=== PATIENT | male | born 2005 | race Caucasian/White ===

== ENCOUNTER 2023-01-15 11:43 | Outpatient (REF) | payer OTHER, SELFPAY ==
[2023-01-15 14:44] LABS: Appearance Urine Clear; Color Urine Yellow; Glucose Urine UA Negative (Negative); Leukocyte Esterase Urine Negative (Negative); Nitrite Urine Negative (Negative); Urine Blood Negative (Negative); Urine Ketones 15 mg/dL (Negative); Urine Protein Negative (Neg-Trace)
[2023-01-15 15:05] LABS: Alanine Aminotransferase 12 U/L (0-40); Albumin Level 4.7 g/dL (3.5-5.0); Alkaline Phosphatase 48 U/L (39-117); Anion Gap 11 (12-20); Aspartate Amino Transferase 19 U/L (5-37); Bilirubin Total 0.7 mg/dL (0.0-1.0); Blood Urea Nitrogen 14 mg/dL (9-16); Calcium 9.8 mg/dL (8.4-10.2); Carbon Dioxide 29 mmol/L (22-29); Chloride 105 mmol/L (96-108); Cholesterol 136 mg/dL; Estimated Glomerular Filt Rate > 60; Glucose Fasting 88 mg/dL (60-99); HDL Cholesterol 46 mg/dL; LDL Cholesterol Calculated 81 mg/dl; Potassium 5.3 mmol/L (3.3-5.1); Sodium 140 mmol/L (135-145); Triglycerides 48 mg/dL
[2023-01-15 15:10] LABS: TSH reflex Free T4 0.94 uIU/mL (0.32-4.0)
[2023-01-16 07:58] LABS: Syphilis Screen Nonreactive (Nonreactive)
[2023-01-16 08:14] LABS: HBS Num1 0.18 mIU/mL (0-7.99); HBc Num1 0.17 S/CO (0.00-0.79); HBsAGNum1 0.39 S/CO (0.00-0.99); HIV AB/AG Nonreactive (Nonreactive); HIV Num 1 0.08 S/CO (0.00-0.99); Hepatitis B Core Antibody Nonreactive (Nonreactive); Hepatitis B Surface Antigen Negative (Negative); ~HepC Num1 0.15 S/CO (0.00-0.79); ~Hepatitis B Surface Antibody NONREACTIVE (Nonreactive); ~Hepatitis C Antibody Nonreactive (Nonreactive)
== END 2023-01-15 11:44 | disposition home or self-care (01) ==
LOC: HO.WFDLDS 11:43
PROVIDERS: Visit Provider Family Medicine
DX: Z00.00 Encounter for general adult medical examination without abnormal findings (principal); Z11.3 Encounter for screening for infections with a predominantly sexual mode of transmission; Z11.4 Encounter for screening for human immunodeficiency virus [HIV]
CPT/HCPCS: 36415; 80053; 80061; 81003; 84443; 86704; 86706; 86780; 86803; 87340; 87389

== ENCOUNTER 2023-01-22 12:35 | Outpatient (REF) | payer OTHER, SELFPAY ==
[2023-01-23 16:53] LABS: CT PCR NOT DETECTED (Not Detect.); NG PCR NOT DETECTED (Not Detect.)
== END 2023-01-22 12:36 | disposition home or self-care (01) ==
LOC: HO.LAB 12:35
PROVIDERS: Visit Provider Family Medicine
DX: Z11.3 Encounter for screening for infections with a predominantly sexual mode of transmission (principal); N50.819 Testicular pain, unspecified
CPT/HCPCS: 0353U

== ENCOUNTER 2023-03-16 15:56 | Outpatient (REF) | payer OTHER, SELFPAY ==
--- NOTE | ~2023-03-16 | US_ITS ---
EXAMINATION: US SCROTUM CLINICAL INFORMATION: Testicular pain, unspecified. COMPARISON: None available. TECHNIQUE: A sonogram of the scrotum was performed assessing chung-scale appearance and color Doppler flow. Spectral Doppler analysis of the arterial and venous flow were performed in the testes bilaterally. FINDINGS: RIGHT: Right testicle measures 4.6 x 2.4 x 3.3 cm, volume 19.1 mL. No focal testicular parenchymal lesions are visualized. Spectral Doppler analysis of the arterial and venous flow is normal in the right testis. Right epididymal head is rectal for a 2 mm epididymal head cyst. No right hydrocele or varicocele is seen. Right epididymal Doppler flow is normal. LEFT: Left testicle measures 4.6 x 2.5 x 3.2 cm, volume 19.2 mL. No focal testicular parenchymal lesions are visualized. Spectral Doppler analysis of the arterial and venous flow is normal in the left testis. Left epididymal head is normal in size. No left hydrocele is seen. Left epididymal Doppler flow is normal. Moderate left varicocele. US/US scrotum IMPRESSION: 1. Moderate left varicocele. 2. A 2 mm right epididymal head cyst.
== END 2023-03-16 15:57 | disposition home or self-care (01) ==
LOC: HO.US 15:56
PROVIDERS: PCP Family Medicine; Visit Provider Family Medicine
DX: N50.819 Testicular pain, unspecified (principal)
CPT/HCPCS: 76870

== ENCOUNTER 2023-07-13 07:59 | Outpatient (AMB) | payer OTHER, SELFPAY ==
--- NOTE | 2023-07-13 07:58 | A.OFFVIS_ITS ---
Intake Intake Visit Reasons: Varicocele/epididymal head cyst Intake Note: NEW Patient presents today to established treatment for Varicocele/Epidydimal Head Cyst: Meds- None Allergies to Antibiotic- Penicillin Blood Thinner- None Acetylene Burner Required: No Accompanied by: Self / Same As Patient Allergies Penicillins Allergy (Unknown, Verified 07/13/23 08:14) Unknown HPI HPI Comments History of Present Illness Details Benjie is a 18-year-old male who presents today to the office to establish as a new patient for an evaluation of varicocele/epididymal head cyst. 07/13/2023? He presents today for an evaluation of left varicocele and testicular pain. He has seen Jose Howe on 04/15/2023 for testicular pain. He was referred to the urology office during that time. He states he noticed the problem about 2 1/2 years ago. He states that when he has 'stress' the pain seems worse. Currently he is asymptomatic. I reviewed the scrotum US results from 03/16/2023 revealed moderate left varicocele, and a 2 mm right epididymal head cyst. He mentions having pain in the testicles. He states that his pain worsens due to emotional stress. Evaluation today?UA? leukocytes: negative; blood: negative. Examination: grade 1 to 2 varicocele on the left. I discussed that stress should not cause more pain in the testicle related to the varicocele, but strenous activity may make things more bothersome, also discussed that severe varicoceles may affect fertility. Plan: Follow up with Dr. Lou in 6 months to discuss varicocele repair at that time. [facility] Surgical History No pertinent past surgical history Family History Paternal Aunt Glaucoma Father No problems noted. Mother No problems noted. Social History Housing: House Patient Tobacco Use Status: Never used Tobacco e-Cigarette/Vaping Use: Never Used Second Hand Smoke Exposure: No service: No Current occupational status: employed Current occupational exposures/hazards: No Review of Systems Const All systems reviewed & are unremarkable except as noted in HPI and below Reports no additional complaints Eyes Reports no additional complaints ENT Reports no additional complaints Card Denies dyspnea Resp Denies cough and Denies dyspnea GI Reports no additional complaints Musc Reports no additional complaints Skin/Breast Denies rash and Denies unusual bruising Neuro Reports no additional complaints Psych Reports no additional complaints Endo Reports no additional complaints Farrukh/Lymph Reports no additional complaints Aller/Immun Reports no additional complaints Physical Exam Const General: healthy appearing, no acute distress and well developed Orientation/consciousness: patient oriented x3 HEENT Head: Yes normocephalic and Yes atraumatic Eyes Conjunctivae: conjunctivae normal Neck Neck: Yes normal visual inspection Chest Chest palpation & inspection: normal inspection of the chest Resp Effort & Inspection: normal respiratory effort Cardio Rate: regular rate GI Inspection: Yes normal to inspection Palpation (GI): Soft to palpation Other: grade I-II left varicocele, testes nontender Penis: normal penis Scrotum: scrotum normal Skin General skin exam: no rashes or lesions noted Neuro General: patient oriented x3 Extrem General: No pedal edema Psych Appearance: grossly normal Affect: normal affect Results AMB Urinalysis, Automated UA Leukoctes 0 Amrita/uL Last Edit by DARLENE Gotti on 07/13/23 08:24 UA Nitrite Negative Last Edit by DARLENE Gotti on 07/13/23 08:24 UA Urobilinogen 0.2 mg/dL Last Edit by DARLENE Gotti on 07/13/23 08:2 4 UA Protein 0 mg/dL Last Edit by DARLENE Gotti on 07/13/23 08:24 UA pH 7.0 Last Edit by DARLENE Gotti on 07/13/23 08:24 UA Blood 0 Nils/uL Last Edit by DARLENE Gotti on 07/13/23 08:24 UA Specific Conesus 1.005 Last Edit by DARLENE Gotti on 07/13/23 08: 24 UA Ketone Negative Last Edit by DARLENE Gotti on 07/13/23 08:24 UA Bilirubin 0 mg/dL Last Edit by DARLENE Gotti on 07/13/23 08:24 UA Glucose 0 mg/dL Last Edit by DARLENE Gotti on 07/13/23 08:24 Results Reviewed Results Reviewed: Laboratory Last Values Urine pH (Auto) 7.0 07/13/23 08:02 Specific Conesus (Auto) 1.005 07/13/23 08:02 Urine Protein (Auto) 0 mg/dL 07/13/23 08:02 Glucose (UA)(Auto) 0 mg/dL 07/13/23 08:02 Urine Ketones (Auto) Negative 07/13/23 08:02 Urine Blood (Auto) 0 Nils/uL 07/13/23 08:02 Urine Nitrite (Auto) Negative 07/13/23 08:02 Urine Bilirubin (Auto) 0 mg/dL 07/13/23 08:02 Urine Urobilinogen (Auto) 0.2 mg/dL 07/13/23 08:02 Leukocyte Esterase (Auto) 0 Amrita/uL 07/13/23 08:02 Date of Service: 03/16/23 EXAMINATION: US SCROTUM CLINICAL INFORMATION:? Testicular pain, unspecified. COMPARISON:? None available. FINDINGS: RIGHT: Right testicle measures 4.6 x 2.4 x 3.3 cm, volume 19.1 mL. No focal testicular parenchymal lesions are visualized. Spectral Doppler analysis of the arterial and venous flow is normal in the right testis. Right epididymal head is rectal for a 2 mm epididymal head cyst. No right hydrocele or varicocele is seen. Right epididymal Doppler flow is normal. LEFT: Left testicle measures 4.6 x 2.5 x 3.2 cm, volume 19.2 mL. No focal testicular parenchymal lesions are visualized. Spectral Doppler analysis of the arterial and venous flow is normal in the left testis.? Left epididymal head is normal in size. No left hydrocele is seen. Left epididymal Doppler flow is normal. Moderate left varicocele. IMPRESSION: 1.? Moderate left varicocele. 2.? A 2 mm right epididymal head cyst. Assessment & Plan Assessment & Plan (1) Testicular pain: Code(s): N50.819 - Testicular pain, unspecified (2) Left varicocele: Code(s): I86.1 - Scrotal varices Plan Follow up with Dr. Lou in 6 months to discuss varicocele repair at that time. Orders: Orders AMB Urinalysis Automated Today Z13.9 - Encounter for screening, unspecified Patient Instructions: The patient had an opportunity to ask questions regarding treatment plan. All questions were answered. Imaging, Laboratory studies and physical exam results were discussed and reviewed in detail. No major barriers to understanding were identified. The patient expressed understanding and agreement with the above treatment plan. The patient is aware they should contact our office by phone for worsening of their current condition or the appearance of new symptoms. Compliance is encouraged with any medications and followup testing that is ordered. It is a privilege to be allowed the opportunity to participate in the urologic care of your patient. If you have any questions or concerns regarding treatment for the above conditions please do not hesitate to contact me. The office telephone contact is [phone]. This note is constructed in part using voice recognition software. While every effort has been made to ensure accuracy network program manager errors may have been included. Yours sincerely, Tad Sifuentes MD Coding Level of Care Code New Pt Level 3 (67157) Diagnoses Testicular pain N50.819 Left varicocele I86.1
== END 2023-07-13 08:50 | disposition home or self-care (01) ==
PROVIDERS: PCP Family Medicine; Visit Provider Urology
DX: N50.819 Testicular pain, unspecified (principal); I86.1 Scrotal varices; Z13.9 Encounter for screening, unspecified
CPT/HCPCS: 99203

== ENCOUNTER → 2023-07-13 07:59 | Outpatient (BNVA) | payer OTHER, SELFPAY | PROVIDERS: PCP Family Medicine; Visit Provider Urology | DX: N50.812 Left testicular pain (principal); I86.1 Scrotal varices | CPT/HCPCS: 81003; 99202 ==

== ENCOUNTER 2024-07-01 11:38 | Outpatient (AMB) | payer OTHER, SELFPAY ==
--- NOTE | 2024-07-01 11:41 | A.OFFPC_ITS ---
Vital Signs 07/01/24 11:48 07/01/24 11:53 07/01/24 12:22 Height 5 ft 10 in Weight 158 lb 4 oz BMI 22.7 BP 158/68 H 148/70 H 126/70 Blood Pressure Location Rt brachial Rt brachial Lt brachial Position Sitting Sitting Sitting Respiration 16 Pulse 77 Pulse Source Pulse Oximeter Temp 98.3 F Temp Source Oral Pulse Oximetry (%) 98 Oxygen Delivery Method Room Air Intake Visit Reasons: Eczema in hands Intake Note: patient here c/o eczema on hands Vest Front Presser Required: No Allergies No Known Allergies Allergy (Verified 07/01/24 11:57) Medication List - Last Reconciled 07/01/24 by Sarah Esquivel CNP No Known Home Meds Tobacco use date assessed: 07/01/24 HPI HPI Comments History of Present Illness Details 19-year-old male presents with complaint s of eczema to his hands. He notes that the rash is on and off, about every 2 months; current flare-up started 2 months ago He is a patient of and was last seen on 04/15/2023 He notes that his father and PGF has history of HTN PFSH Surgical History No pertinent past surgical history Family History Paternal Aunt Glaucoma Father No problems noted. Mother No problems noted. Social History Housing: House Patient Tobacco Use Status: Never used Tobacco e-Cigarette/Vaping Use: Never Used Second Hand Smoke Exposure: No service: No Current occupational status: employed Current occupational exposures/hazards: No Questionnaire Thrive Questionnaire Date Thrive assessed: 01/22/23 DONOVAN-7 AMB Questionnaire DONOVAN-7 Date DONOVAN - 7 assessed: 01/22/23 Source: Developed by Drs. Everett Varela, Emmie Goodman, Timmy Mclean and colleagues, with an educational francesco from [employer]. Review of Systems Const Details: Const Denies chills, Denies fatigue, Denies fever(s), Denies headache(s) and Denies weakness ENT Denies dizziness and Denies headache(s) Card Denies chest pain, Denies lightheadedness, Denies dyspnea and Denies other (Palpitations) Resp Denies cough, Denies dyspnea, Denies wheezing and Denies other ( shortness of breath) GI Denies abdominal pain, Denies melena, Denies hematochezia, Denies change in bowel habits, Denies dyspepsia and Denies nausea Denies hematuria and Denies dysuria Musc Denies abnormal gait, Denies myalgias, Denies arthralgias, Denies numbness and Denies tingling Skin/Breast Reports as per HPI Neuro Denies abnormal gait, Denies dizziness, Denies headache(s), Denies memory loss, Denies numbness, Denies Sensory deficit (Neuro), Denies tingling and Denies weakness Psych Denies anxiety, Denies depression, Denies memory loss Endo Denies cold intolerance, Denies fatigue, Denies heat intolerance, Denies polydipsia and Denies polyuria Aller/Immun Denies wheezing Physical exam (Primary Care) Vital Signs: Last Vital Signs Temp 98.3 F 07/01/24 11:48 Pulse 77 07/01/24 11:48 Resp 16 07/01/24 11:48 BP 148/70 H 07/01/24 11:53 Pulse Ox 98 07/01/24 11:48 Oxygen Delivery Method Room Air 07/01/24 11:48 BMI result Body Mass Index 22.7 Tobacco/Smoking Status: Tobacco use Status Tobacco use date assessed 07/01/24 07/01/24 11:53 Patient Tobacco Use Status Never used Tobacco 07/01/24 11:53 e-Cigarette/Vaping Use Never Used 07/01/24 11:53 Thrive Assessment: Date of Thrive Assessment Date Thrive assessed 01/22/23 07/01/24 11:53 Const Other: General: no acute distress and well developed Nutritional Appearance: well nourished Orientation/consciousness: patient oriented x3 HENMT Head: Yes normocephalic and Yes atraumatic Eyes General: appearance normal, both eyes and all related structures Pupils: Equal, round and reactive pupils present EOM: EOMs intact bilaterally Resp Effort & Inspection: normal respiratory effort Auscultation: clear to auscultation bilaterally Cardio Rate: regular rate Rhythm: regular rhythm Heart sounds: S1 normal heart sound present, S2 normal heart sound present, no gallops, no murmurs and no rubs GI Palpation (GI): No Abdominal aortic bruit present, Soft to palpation, nontender, No hepatosplenomegaly present and No Rebound tenderness present Auscultation: normal bowel sounds General: Yes no CVA tenderness Back/Spine/Pelvis Back: no CVA tenderness Cervical Spine: cervical ROM normal and No Cervical spine tenderness Thoracic/Lumbar Spine: thoraco-lumbar ROM normal, No pain with thoraco-lumbar ROM, No thoracic spinal tenderness and No lumbar spinal tenderness Extrem General: Yes normal to inspection, No edema and No calf tenderness Skin General: warm and dry. Normal skin color. Normal skin turgor Lesions: no lesions Rashes: Eczema rash noted to the dorsum of his fingers Trauma: no lacerations or abrasions Wounds: no wounds Nails: normal Neuro General: patient oriented x3, gait normal and no focal neuro deficit Cranial nerves: Yes Equal, round and reactive pupils present Cognition (Neuro): normal cognition Gait exam (Neuro): Normal gait present Sensory Exam: No Sensory deficit (Neuro) Psych Appearance: grossly normal Affect: normal affect Attitude: cooperative Thought process: Normal thought process present Assessment and Plan Assessment & Plan (1) Eczema: Code(s): L30.9 - Dermatitis, unspecified Plan: Eczema rash noted to the dorsum of his fingers Triamcinolone cream ordered. Advised to take as prescribed Instructed to follow-up with his PCP for routine care Return with worsening or new signs and symptoms Verbalized understanding and agreed with the treatment plan (2) Elevated BP without diagnosis of hypertension: Code(s): R03.0 - Elevated blood-pressure reading, without diagnosis of hypertension Plan: Initial blood pressure was elevated, 158/68. Resting blood pressure is normal, 126/70 Low-sodium diet and routine exercise encouraged Verbalized understanding and agreed with the plan Medications: Refilled triamcinolone acetonide 0.5% 1 appl topical BID 14 days 45 grams 2RF Coding Level of Care Code Est Pt Level 4 (16761) Complex EM visit Add On G2211 Diagnoses Eczema L30.9 Elevated BP without diagnosis of hypertension R03.0
[2024-07-01 11:48] VITALS: BP 158/68; PULSE 77; RESP 16; TEMP 36.8; O2SAT 98; BMI 22.7
[2024-07-01 11:53] VITALS: BP 148/70
[2024-07-01 12:22] VITALS: BP 126/70
== END 2024-07-01 12:20 | disposition home or self-care (01) ==
PROVIDERS: PCP Family Medicine; Visit Provider Nurse Practitioner Family
DX: L30.9 Dermatitis, unspecified (principal); R03.0 Elevated blood-pressure reading, without diagnosis of hypertension
CPT/HCPCS: 99214; G2211

== ENCOUNTER 2025-04-13 13:59 | Outpatient (AMB) | payer OTHER, SELFPAY ==
--- NOTE | 2025-04-13 14:25 | MHC.PC.OV ---
Vital Signs 04/13/25 14:36 Height 5 ft 10 in Weight 163 lb 2 oz BMI 23.4 BP 120/80 Blood Pressure Location Rt brachial Position Sitting Respiration 16 Pulse 80 Pulse Source Pulse Oximeter Temp 97.7 F Temp Source Oral Pulse Oximetry (%) 96 Oxygen Delivery Method Room Air Intake Visit Reasons: dog bite Intake Note: patient is scheduled for dog bites on right outer thigh and ankle and right arm. bites have healed for the most part pt was given a tetanus shot in the ed pt would also like to discuss his mental health Crew Truck Driver Required: No Allergies No Known Allergies Allergy (Verified 04/13/25 14:35) Tobacco use date assessed: 07/01/24 HPI dog bite HPI Details Patient?presented?to?emergency?department?on?03/09/2025?after?a?dog?bite. Was?given?Tdap?and?rabies?vaccination?/?on?that?day Was?not?given?immune?globulin He?was?discharged?with?a?script?for?Augmentin Patient?returned?for vaccinations?to?3?and?for?subsequent?visits?to?the?emergency?department?and?completed?rabies?series. Wound?was?healing?well. Pt reports issues with anxiety. He reports hx of ADD/ADHD as a child. PHQ-9 8, DONOVAN-7 12 today. Pt notes he has been exercising and eating well. Denies any active thoughts of SI/HI. Does not currently have a therapist. HPI Comments History of Present Illness Details Documentation assistance for Jose Chacko MD, was provided by Simba Lira,? Special Distribution Clerk on 04/13/2025 at 3:21 PM EST. I, Dr. Chacko, have read, observed, and verified documentation. ?? PFSH Surgical History No pertinent past surgical history Family History Paternal Aunt Glaucoma Father No problems noted. Mother No problems noted. Social History Housing: House Patient Tobacco Use Status: Never used Tobacco e-Cigarette/Vaping Use: Never Used Second Hand Smoke Exposure: No service: No Current occupational status: employed Current occupational exposures/hazards: No Questionnaire PHQ-9 Over the last 2 weeks, how often have you been bothered by any of the following problems? 1. Little interest or pleasure in doing things: several days 2. Feeling down, depressed, or hopeless: several days 3. Trouble falling or staying asleep, or sleeping too much: not at all 4. Feeling tired or having little energy: more than half the days 5. Poor appetite or overeating: not at all 6. Feeling bad about yourself - or that you are a failure or have let yourself or your family down: more than half the days 7. Trouble concentrating on things, such as reading the newspaper or watching television: not at all 8. Moving or speaking so slowly that other people could have noticed. Or the opposite - being so fidgety or restless that you have been moving around a lot more than usual: several days 9. Thoughts that you would be better off or of hurting yourself in some way: several days Total score: 8 Depression Screening Interpretation: Negative Depression Screening Done: Yes 88883 - PHQ-9 Billing: Yes Source: Developed by Drs. Everett Varela, Emmie Goodman, Timmy Mclean and colleagues, with an educational francesco from [employer]. Thrive Questionnaire Date Thrive assessed: 01/22/23 I am a: Patient What is your living situation today?: I have a steady place to live Within the past 12 months, did the food you bought not last and you didn't have the money to get more?: Never true Within the past 12 months, did you worry whether your food would run out before you got money to buy more?: Never true Do you have trouble paying for medicines?: Yes Do you have trouble getting transportation to medical appointments?: No Do you have trouble paying your heating and electricity bill?: No Do you have trouble taking care of your child, family member or friend?: No Do you have trouble with day-to-day activities such as bathing, preparing meals, shopping, managing finances, etc.?: No Are you currently unemployed and looking for a job?: No Are you interested in more education?: Yes Please select the resources that you would like help with: Paying for medicine, Daily support, Job search/training and Education Currently or been in a relationship where the following occur: No concerns reported THRIVE Score: 0 AUDIT C Alcohol Use Questionnaire (AUDIT-C) 1. How often do you have a drink containing alcohol?: Monthly or less 2. How many drinks containing alcohol do you have on a typical day when you are drinking?: 1 or 2 3. How often do you have six or more drinks on one occasion?: Less than monthly Total Score: 2 DONOVAN-7 AMB Questionnaire DONOVAN-7 Date DONOVAN - 7 assessed: 04/13/25 Feeling nervous, anxious, or on edge: 2 = More than half the days Not being able to stop or control worryin = More than half the days Worrying too much about different things: 2 = More than half the days Trouble relaxin = Several days Being so restless that it is hard to sit still: 0 = Not at all Becoming easily annoyed or irritable: 2 = More than half the days Feeling afraid as if something awful might happen: 3 = Nearly every day Total DONOVAN-7 score (0-4 normal; 5-9 mild; 10-14 moderate; 15-21 severe): 12 Source: Developed by Drs. Everett Varela, Emmie Goodman, Timmy Mclean and colleagues, with an educational francesco from [employer]. DONOVAN-7 Assessment Billing DONOVAN-7 Assessment Tool: DONOVAN-7 Assessment 44373 Review of Systems Const Denies chills, Denies fatigue, Denies fever(s), Denies headache(s) and Denies weakness ENT Denies dizziness and Denies headache(s) Card Denies dyspnea Resp Denies cough, Denies dyspnea, Denies wheezing and Denies other (shortness of breath) Musc Denies numbness and Denies tingling Neuro Denies dizziness, Denies headache(s), Denies numbness, Denies tingling and Denies weakness Psych Denies anxiety and Denies depression Endo Denies fatigue Aller/Immun Denies wheezing Physical exam (Primary Care) Vital Signs: Last Vital Signs Temp 97.7 F 04/13/25 14:36 Pulse 80 04/13/25 14:36 Resp 16 04/13/25 14:36 BP 120/80 04/13/25 14:36 Pulse Ox 96 04/13/25 14:36 Oxygen Delivery Method Room Air 04/13/25 14:36 BMI result Body Mass Index 23.4 Tobacco/Smoking Status: Tobacco use Status Tobacco use date assessed 07/01/24 04/13/25 14:29 Patient Tobacco Use Status Never used Tobacco 04/13/25 14:29 e-Cigarette/Vaping Use Never Used 04/13/25 14:29 PHQ-9: PHQ-9 Score PHQ-9: Total score 8 04/13/25 15:01 Depression Screening Interpretation: Negative Thrive Assessment: Date of Thrive Assessment Date Thrive assessed 01/22/23 04/13/25 14:29 Currently or been in a relationship where the following occur: No concerns reported Const General: well developed; No acute distress Nutritional Appearance: well nourished Orientation/consciousness: patient oriented x3 HENMT Head: Yes normocephalic and Yes atraumatic Eyes General: appearance normal, both eyes and all related structures Pupils: Equal, round and reactive pupils present EOM: EOMs intact bilaterally Resp Effort & Inspection: normal respiratory effort Auscultation: clear to auscultation bilaterally Cardio Rate: regular rate Rhythm: regular rhythm Heart sounds: S1 normal heart sound present, S2 normal heart sound present, no gallops, no murmurs and no rubs Neuro General: patient oriented x3 and gait normal Cranial nerves: Yes Equal, round and reactive pupils present Psych Affect: normal affect Coding Level of Care Code Est Pt Level 5 (98842) Diagnoses Dog bite W54.0XXA Anxiety F41.9 Difficulty concentrating R41.840 Eczema L30.9 Anxiety with depression F41.8 Additional Codes DONOVAN-7 Assessment Billing - DONOVAN-7 Assessment Tool: DONOVAN-7 Assessment 97712 ([id number]) PHQ-9 - 67204 - PHQ-9 Billing: Yes ([id number]) Assessment & Plan Assessment & Plan (1) Dog bite: Code(s): W54.0XXA - Bitten by dog, initial encounter Category: Medical Plan: Patient?presented?to?emergency?department?on?03/09/2025?after?a?dog?bite. Was?given?Tdap?and?rabies?vaccination?/?on?that?day Was?not?given?immune?globulin He?was?discharged?with?a?script?for?Augmentin Patient?returned?for vaccinations?to?3?and?for?subsequent?visits?to?the?emergency?department?and?completed?rabies?series. Wound?was?healing?well. Wound?continues?to?heal?well He?can?use?a?moisturizer?with?no?dyes?or?perfumes (2) Anxiety: Code(s): F41.9 - Anxiety disorder, unspecified Category: Medical Plan: Significant?anxiety Has?had?thoughts?of?self-harm?but?no?active?thoughts.??Contracts?for?safety. Who?trial?citalopram Will?refer?for?a?therapist We?discussed?1st?and?2nd?line?medications?for?anxiety Follow-up?in?1?month (3) Difficulty concentrating: Code(s): R41.840 - Attention and concentration deficit Category: Medical Plan: Will?refer?him?for?testing (4) Eczema: Code(s): L30.9 - Dermatitis, unspecified Category: Medical Plan: Much?improved?from?prior visit Continue moisturizer cream as needed (5) Anxiety with depression: Code(s): F41.8 - Other specified anxiety disorders Category: Medical Plan: As?above Orders: Referrals Neuropsychiatry Referral R41.840 - Attention and concentration deficit Nurse Navigator Referral F41.9 - Anxiety disorder, unspecified Medications: New citalopram 20 mg PO DAILY 30 tabs 2RF 30 days
[2025-04-13 14:36] VITALS: BP 120/80; PULSE 80; RESP 16; TEMP 36.5; O2SAT 96; BMI 23.4
== END 2025-04-13 15:23 | disposition home or self-care (01) ==
LOC: HO.HMCFM 14:00
PROVIDERS: PCP Family Medicine; Visit Provider Family Medicine
DX: R41.840 Attention and concentration deficit (principal); L30.9 Dermatitis, unspecified; F41.8 Other specified anxiety disorders; W54.0XXA Bitten by dog, initial encounter; F41.9 Anxiety disorder, unspecified

== ENCOUNTER → 2025-04-13 13:59 | Outpatient (BNVA) | payer OTHER, SELFPAY | PROVIDERS: PCP Family Medicine; Visit Provider Family Medicine | DX: R41.840 Attention and concentration deficit (principal); F41.8 Other specified anxiety disorders; L30.9 Dermatitis, unspecified; S71.151D Open bite, right thigh, subsequent encounter; S91.059 Open bite, unspecified ankle; S41.151D Open bite of right upper arm, subsequent encounter; W54.0XXD Bitten by dog, subsequent encounter | CPT/HCPCS: 96127 ==